=== PATIENT | female | born 1940 | race Caucasian/White ===

== ENCOUNTER 2017-12-20 17:10 | Inpatient (IN) | payer OTHER ==
[~2017-12-20] VITALS: Ht 157.5 cm; Wt 91.6 kg
[~2017-12-20 17:10] MED LIST: ACETAMINOPHEN500 MG PO; ALBUTEROL SULF8.5 GM IH; ASCORBIC ACID500 M3 PO; ASPIR 8181 M1 PO; ATARAX10 MG PO; B COMPLETE1 EACH PO; BISACODYL5 MG PO; CELEBREX200 MG PO; CELECOXIB200 MG PO; COUMADIN1 MG PO; COUMADIN2 MG PO; COUMADIN4 MG PO; COUMADIN5 MG PO; CRESTOR5 MG PO; DOCUSATE SODIU100 MG PO; FOLIC ACID1 MG PO; FUROSEMIDE20 MG PO; HYDROCODON-ACE1 EAC7 PO; HYDROXYZINE HCL10 MG PO; HYZAAR 100-21 TABLET PO; IRON325 M1 PO; LEVOTHYROXINE50 MCG PO; LIDOCAINE700 MG TD; LIDODERM 5% P1 PATCH TD; LO-DOSE ASPIRIN81 M1 PO; LOVENOX40 MG/0.4 SC; METAXALONE800 MG PO; METFORMIN HCL500 MG PO; NAPROSYN500 MG PO; OMEPRAZOLE20 MG PO; POTASSIUM CHLO10 ME3 PO; POTASSIUM CHLO20 ME1 PO; POTASSIUM CHLO20 ME2 PO; PRILOSEC20 MG PO; SENNA-TIME S T1 EACH PO; SPIRIVA1 INHALATI IH; THERAGRAN1 TABLET PO; TOPROL XL25 MG PO; TRAMADOL HCL50 MG PO; TYLENOL EXTRA500 MG PO; VITAMIN A10000 UNIT PO; VITAMIN C1000 MG PO; WARFARIN SODIUM2 MG PO; WARFARIN SODIUM5 MG PO
[2017-12-20 17:33] LABS: BASOPHIL (%) 0.7 % (0-1); BASOPHIL COUNT 0.1 K/uL (0-0.1); EOSINOPHIL (%) 1.7 % (0-5); EOSINOPHIL COUNT 0.2 K/uL (0-0.3); HEMATOCRIT 33.9 % (36.0-46.0); HEMOGLOBIN 10.3 G/DL (11.9-15.5); IMMATURE GRANULOCYTE (%) 0.4 % (0.0-0.7); LYMPHOCYTE (%) 24.5 % (15-42); LYMPHOCYTE COUNT 2.2 K/uL (1.0-2.8); MCH 26.5 PG (29.0-34.0); MCHC 30.4 G/DL (30.0-36.0); MCV 87.1 FL (83-99); MONOCYTE (%) 12.7 % (3-12); MONOCYTE COUNT 1.1 K/uL (0-0.8); NEUTROPHIL COUNT 5.3 K/uL (1.8-6.4); PLATELET COUNT 232 K/uL (156-360); RBC DIS.WIDTH-CV 14.6 % (11.8-14.6); RBC DIS.WIDTH-SD 46.5 % (39-53); RED BLOOD COUNT 3.89 M/uL (3.80-5.20); WHITE BLOOD COUNT 8.9 K/uL (4.1-10.2)
[2017-12-20 17:41] LABS: CHLORIDE 95 mEq/L (99-109); SODIUM 140 mEq/L (136-147)
[2017-12-20 17:43] LABS: GLUCOSE 96 mg/dL (70-99)
[2017-12-20 17:45] LABS: POTASSIUM 5.3 mEq/L (3.7-5.4)
[2017-12-20 17:47] LABS: GFR ESTIMATE (CALCULATED) 31 mL/min/
[2017-12-20 17:48] LABS: UREA NITROGEN (BUN) 20 mg/dL (9-23)
[2017-12-20 17:49] LABS: CREATININE 1.7 mg/dL (0.6-1.3)
[2017-12-20 17:54] LABS: TROP-I INTERPRETATION NEGATIVE; TROPONIN-I 0.16 ng/mL (0.0-0.30)
[2017-12-20] MEDS ORDERED: LIDODERM 5% P1 PATCH TD (19:47)
[2017-12-20] MEDS ORDERED: ELIQUIS5 MG PO (19:47)
[2017-12-20] MEDS ORDERED: VITAMIN B125000 MCG PO (19:48)
[2017-12-20] MEDS ORDERED: GABAPENTIN300 MG PO (19:48)
[2017-12-20] MEDS ORDERED: GABAPENTIN400 MG PO (19:48)
[2017-12-20 21:48] VITALS: BP 108/65; BP 127/53; BP 133/91
[2017-12-20 21:48] LABS: THYROTROPIN (TSH) 3.4 MIU/L (0.4-5.5)
[2017-12-20 23:04] LABS: INTER. NORMALIZED RATIO 1.8
[2017-12-20 23:15] LABS: TROP-I INTERPRETATION NEGATIVE; TROPONIN-I 0.27 ng/mL (0.0-0.30)
[2017-12-21 04:32] VITALS: BP 119/49
[2017-12-21 06:55] LABS: BASOPHIL (%) 0.6 % (0-1); BASOPHIL COUNT 0.1 K/uL (0-0.1); EOSINOPHIL (%) 2.9 % (0-5); EOSINOPHIL COUNT 0.3 K/uL (0-0.3); HEMATOCRIT 33.7 % (36.0-46.0); HEMOGLOBIN 9.8 G/DL (11.9-15.5); IMMATURE GRANULOCYTE (%) 0.5 % (0.0-0.7); LYMPHOCYTE (%) 26.6 % (15-42); LYMPHOCYTE COUNT 2.6 K/uL (1.0-2.8); MCH 25.5 PG (29.0-34.0); MCHC 29.1 G/DL (30.0-36.0); MCV 87.5 FL (83-99); MONOCYTE (%) 10.5 % (3-12); NEUTROPHIL (%) 58.9 % (45-76); NEUTROPHIL COUNT 5.8 K/uL (1.8-6.4); PLATELET COUNT 224 K/uL (156-360); RBC DIS.WIDTH-CV 14.4 % (11.8-14.6); RBC DIS.WIDTH-SD 46.4 % (39-53); RED BLOOD COUNT 3.85 M/uL (3.80-5.20); WHITE BLOOD COUNT 9.9 K/uL (4.1-10.2)
[2017-12-21 07:17] LABS: TROP-I INTERPRETATION INDETERMINATE; TROPONIN-I 0.36 ng/mL (0.0-0.30)
[2017-12-21 07:22] LABS: ALBUMIN 3.5 G/DL (3.2-4.8); ALKALINE PHOSPHATASE 80 IU/L (3-129); ALT (GPT) 5 IU/L (3-49); AST (GOT) 13 IU/L (2-34); CHLORIDE 97 MEQ/L (99-109); CREATININE 1.3 MG/DL (0.6-1.3); DIRECT BILIRUBIN 0.5 mg/dL (0.0-0.3); GFR ESTIMATE (CALCULATED) 42 mL/min/; GLUCOSE 88 mg/dL (70-99); POTASSIUM 4.5 MEQ/L (3.7-5.4); SODIUM 142 MEQ/L (136-147); TOTAL BILIRUBIN 1.8 MG/DL (0.0-1.0); TOTAL PROTEIN 5.8 G/DL (6.4-8.3); UREA NITROGEN (BUN) 22 mg/dL (9-23)
[2017-12-21 07:28] VITALS: BP 112/55
[2017-12-21 15:53] VITALS: BP 115/53
[2017-12-21 19:24] VITALS: BP 141/76
[2017-12-22 00:20] VITALS: BP 135/76
[2017-12-22 03:35] LABS: CHLORIDE 94 mEq/L (99-109); POTASSIUM 4.2 mEq/L (3.7-5.4); SODIUM 140 mEq/L (136-147)
[2017-12-22 03:36] LABS: GLUCOSE 106 mg/dL (70-99)
[2017-12-22 03:40] LABS: GFR ESTIMATE (CALCULATED) 57 mL/min/
[2017-12-22 03:41] LABS: UREA NITROGEN (BUN) 20 mg/dL (9-23)
[2017-12-22 05:34] VITALS: BP 135/77
[2017-12-22 08:25] VITALS: BP 126/72
[2017-12-22 14:50] VITALS: BP 108/51
[2017-12-22 19:53] VITALS: BP 134/56
[2017-12-22 23:22] VITALS: BP 117/64
[2017-12-23 04:30] VITALS: BP 126/66
[2017-12-23 05:56] LABS: CHLORIDE 98 MEQ/L (99-109); GFR ESTIMATE (CALCULATED) 57 mL/min/; GLUCOSE 104 mg/dL (70-99); MAGNESIUM 1.2 mg/dl (1.3-2.7); POTASSIUM 4.2 MEQ/L (3.7-5.4); UREA NITROGEN (BUN) 20 mg/dL (9-23)
[2017-12-23 06:15] LABS: SODIUM 149 MEQ/L (136-147)
[2017-12-23 06:17] LABS: CARBON DIOXIDE (BICARBONATE) > 40.0 MEQ/L (20-31)
[2017-12-23 07:17] VITALS: BP 125/57
[2017-12-23 07:46] LABS: BICARBONATE 42.8 mEq/L (22-26); CARBOXY HGB 1.7 % (0-5); COMMENTS - BLOOD GASES A+C+; DEVICE NC; METHEMOGLOBIN 1.1 % (0-1.5); O2 FLOW 2 L/MIN; PCO2 85 mm Hg (35-45); PO2 120 mm Hg (80-100); SITE RR.; pH 7.31 (7.35-7.45)
[2017-12-23 07:47] LABS: BASE EXCESS 13.9 mEq/L (-3 to +3)
[2017-12-23 10:01] LABS: HEMOGLOBIN A1c (GLYCOHEMOGLOB) 6.3 % (Below 5.7)
[2017-12-23 10:30] LABS: CARBOXY HGB 1.8 % (0-5); COMMENTS - BLOOD GASES ARTERIAL; METHEMOGLOBIN 0.9 % (0-1.5); PCO2 81 mm Hg (35-45); PO2 115 mm Hg (80-100); SITE DRAWN BY CATH LAB; pH 7.34 (7.35-7.45)
[2017-12-23 10:31] LABS: BASE EXCESS 15.1 mEq/L (-3 to +3); BICARBONATE 43.7 mEq/L (22-26)
[2017-12-23 10:33] LABS: COMMENTS - BLOOD GASES ATRIUM; PCO2 77 mm Hg (35-45); PO2 51 mm Hg (80-100); SITE DRAWN BY CATH LAB; pH 7.31 (7.35-7.45)
[2017-12-23 10:34] LABS: BASE EXCESS 10.6 mEq/L (-3 to +3); BICARBONATE 38.8 mEq/L (22-26); CARBOXY HGB 2.6 % (0-5); METHEMOGLOBIN 0.3 % (0-1.5)
[2017-12-23 10:36] LABS: COMMENTS - BLOOD GASES PULM ARTERY; PCO2 91 mm Hg (35-45); PO2 42 mm Hg (80-100); SITE DRAWN BY CATH LAB
[2017-12-23 10:38] LABS: BASE EXCESS 15.3 mEq/L (-3 to +3); BICARBONATE 44.8 mEq/L (22-26); CARBOXY HGB 2.2 % (0-5); METHEMOGLOBIN 0.3 % (0-1.5)
[2017-12-23 10:40] LABS: COMMENTS - BLOOD GASES PULM WEDGE; SITE DRAWN BY CATH LAB
[2017-12-23 10:41] LABS: BASE EXCESS 12.3 mEq/L (-3 to +3); BICARBONATE 39.9 mEq/L (22-26); CARBOXY HGB 2.5 % (0-5); HEMATOCRIT 86.3 % (36-46); METHEMOGLOBIN 0.6 % (0-1.5); PCO2 69 mm Hg (35-45); PO2 50 mm Hg (80-100); pH 7.37 (7.35-7.45)
[2017-12-23 10:59] LABS: CARBOXY HGB 2.3 % (0-5); COMMENTS - BLOOD GASES CATHLAB COLLECT; METHEMOGLOBIN 0.4 % (0-1.5); PCO2 76 mm Hg (35-45); PO2 58 mm Hg (80-100); SITE CATHLAB; pH 7.35 (7.35-7.45)
[2017-12-23 11:00] LABS: BASE EXCESS 13.8 mEq/L (-3 to +3)
[2017-12-23 13:42] VITALS: BP 119/56
[2017-12-23 15:06] VITALS: BP 120/54
[2017-12-23 19:47] VITALS: BP 133/69
[2017-12-23 23:30] VITALS: BP 135/80
[2017-12-24 04:21] VITALS: BP 114/59
[2017-12-24 05:45] LABS: APPEARANCE SL.HAZY ((CLEAR)); BILIRUBIN NEGATIVE; BLOOD NEGATIVE; COLOR YELLOW ((YELLOW)); GLUCOSE (STRIP) NEGATIVE; KETONES NEGATIVE; LEUKOCYTES TRACE; NITRITE NEGATIVE; PROTEIN (STRIP) NEGATIVE; SPECIFIC GRAVITY 1.027 (1.000-1.030)
[2017-12-24 05:54] LABS: BACTERIA NONE SEEN /HPF; EPITHELIAL CELLS 1+ /HPF; HYALINE CASTS 0-5 /LPF; MUCUS TRACE /LPF; RED BLOOD CELLS 0-5 /HPF (0-5); UCUL ADDED? YES
[2017-12-24 06:39] LABS: CHLORIDE 95 MEQ/L (99-109); CREATININE 0.8 MG/DL (0.6-1.3); GFR ESTIMATE (CALCULATED) > 59 mL/min/; GLUCOSE 96 mg/dL (70-99); MAGNESIUM 1.3 mg/dl (1.3-2.7); POTASSIUM 3.6 MEQ/L (3.7-5.4); SODIUM 144 MEQ/L (136-147); UREA NITROGEN (BUN) 16 mg/dL (9-23)
[2017-12-24 06:48] LABS: CARBON DIOXIDE (BICARBONATE) > 40.0 MEQ/L (20-31)
[2017-12-24 08:27] VITALS: BP 138/68
[2017-12-24 12:20] VITALS: BP 122/68
[2017-12-24 16:12] VITALS: BP 158/80
[2017-12-24 19:10] VITALS: BP 139/82
[2017-12-24 23:30] VITALS: BP 160/70
[2017-12-25 03:45] VITALS: BP 139/69
[2017-12-25 08:06] VITALS: BP 147/62
[2017-12-25 11:47] VITALS: BP 144/71
[2017-12-25 15:10] VITALS: BP 146/71
[2017-12-25 22:30] VITALS: BP 140/66
[2017-12-26] VITALS (7 sets, daily range): BP systolic 134–189; BP diastolic 59–115
[2017-12-27] VITALS: BP 176/77
[2017-12-27 06:00] VITALS: BP 128/58
[2017-12-27 07:53] VITALS: BP 124/56
[2017-12-27 10:22] VITALS: BP 148/68
[2017-12-27 15:30] VITALS: BP 137/64
[2017-12-27 23:36] VITALS: BP 191/79
[2017-12-28 04:58] VITALS: BP 160/70
[2017-12-28 09:15] VITALS: BP 152/62
[2017-12-28 12:33] VITALS: BP 158/69
[2017-12-28 15:30] VITALS: BP 153/81
[2017-12-28 19:46] VITALS: BP 154/65
[2017-12-28 23:59] VITALS: BP 158/64
[2017-12-29 06:19] VITALS: BP 152/66
[2017-12-29 07:33] VITALS: BP 139/60
[2017-12-29 11:43] VITALS: BP 137/85
[2017-12-29 16:08] VITALS: BP 140/71
[2017-12-29 19:16] VITALS: BP 146/65
[2017-12-30 00:08] VITALS: BP 133/60
[2017-12-30 03:47] VITALS: BP 135/61
== END 2017-12-30 04:50 | disposition short-term general hospital (02) | DRG 286 ==
LOC: EME 17:10 → EDOF 19:39 → 4EAST 19:39 → ENRESERV 19:44 → EDOF 20:24 → ENRESERV 20:48 → 4EAST 21:32 → ENRESERV 12-27 08:32 → 4SOUTH 12-27 10:26
PROVIDERS: Emergency Medicine; Hospitalist; Internal Medicine; Physician Assistant
DX: I08.3 Combined rheumatic disorders of mitral, aortic and tricuspid valves (principal); N17.9 Acute kidney failure, unspecified; T79.6XXA Traumatic ischemia of muscle, initial encounter; W18.2XXA Fall in (into) shower or empty bathtub, initial encounter; Y93.E1 Activity, personal bathing and showering; R35.0 Frequency of micturition; I11.0 Hypertensive heart disease with heart failure; I50.43 Acute on chronic combined systolic (congestive) and diastolic (congestive) heart failure; I48.2 Chronic atrial fibrillation; K21.9 Gastro-esophageal reflux disease without esophagitis; E78.5 Hyperlipidemia, unspecified; E03.9 Hypothyroidism, unspecified; R79.1 Abnormal coagulation profile; I27.20 Pulmonary hypertension, unspecified; J44.9 Chronic obstructive pulmonary disease, unspecified; G47.33 Obstructive sleep apnea (adult) (pediatric); E87.4 Mixed disorder of acid-base balance; E66.01 Morbid (severe) obesity due to excess calories; E11.40 Type 2 diabetes mellitus with diabetic neuropathy, unspecified; I25.10 Atherosclerotic heart disease of native coronary artery without angina pectoris; D64.9 Anemia, unspecified; L89.321 Pressure ulcer of left buttock, stage 1; L89.311 Pressure ulcer of right buttock, stage 1; S91.104A Unspecified open wound of right lesser toe(s) without damage to nail, initial encounter; X58.XXXA Exposure to other specified factors, initial encounter; R74.8 Abnormal levels of other serum enzymes; Z79.01 Long term (current) use of anticoagulants; Z87.891 Personal history of nicotine dependence; Z79.4 Long term (current) use of insulin; Z88.5 Allergy status to narcotic agent; Z91.19 Patient's noncompliance with other medical treatment and regimen; Z68.39 Body mass index [BMI] 39.0-39.9, adult; Z75.1 Person awaiting admission to adequate facility elsewhere; Z79.82 Long term (current) use of aspirin
CPT/HCPCS: 36415; 36600; 70450; 71045; 71046; 76770; 78582; 80048; 80053; 81003; 82248; 82803; 82948; 83036; 83735; 83880; 83880 GA; 84443; 84484; 85025; 85027; 85379; 85610; 85730; 87086; 93005; 93306; 94640; 94640 76; 94660; 94799; 97530 GO; 99202; 99281; 99285; A9540; A9567; C1769; C1887; C1894; J1644; J1650; J1815; J2250; J3010; J3475